=== PATIENT | male | born 1950 | race Caucasian/White ===

== ENCOUNTER 2021-10-12 11:00 | Inpatient (IN) ==
[2021-10-12] MEDS ORDERED: *HR* HYDROmorphone PF 0.5 MG/0.5 ML SYRINGE IVP PRN (11:48)
[2021-10-12] MEDS ORDERED: cefOXitin 2,000 MG in Water for inj. (sterile) 10 ML IVP ONE ×2 (12:16→13:00)
[2021-10-12] MEDS: Ringers Solution, Lactated 1,000 ML IVC SCH ×2 (12:27→18:34)
[2021-10-12] MEDS ORDERED: Ondansetron 4 MG/2 ML VIAL ONE (12:44)
[2021-10-12] MEDS ORDERED: *HR* Rocuronium Bromide 50 MG/5 ML VIAL ONE ×2 (12:44→15:48)
[2021-10-12] MEDS ORDERED: Lidocaine -MPF 2% 5 ML VIAL ONE ×2 (12:44→17:13)
[2021-10-12] MEDS ORDERED: *HR* FentaNYL (PF) 100 MCG/2 ML VIAL ONE (12:45)
[2021-10-12] MEDS ORDERED: *HR* Propofol 200 MG/20 ML VIAL IVP ONE (12:45)
[2021-10-12] MEDS ORDERED: *HR* Magnesium Sulfate 1 GM/2 ML VIAL ONE (13:00)
[2021-10-12] MEDS ORDERED: Acetaminophen IV 1,000 MG/100 ML BAG IVPB ONE (14:13)
[2021-10-12] MEDS ORDERED: *HR* HYDROMORPHONE 2 MG/ML VIAL ONE (15:50)
[2021-10-12] MEDS ORDERED: *HR* Metoprolol 5 MG/5 ML VIAL IVP PRN (18:59)
[2021-10-12] MEDS ORDERED: Ondansetron 4 MG/2 ML VIAL IVP PRN (18:59)
[2021-10-12] MEDS ORDERED: D5% in Water 1,000 ML IVC PRN (18:59)
[2021-10-12] MEDS ORDERED: *HR* Dextrose 50 % in Water (Syg) 50 ML SYRINGE IVP PRN (18:59)
[2021-10-12] MEDS ORDERED: Dextrose Gel 15 GM/37.5 ML TUBE PO PRN ×2 (18:59)
[2021-10-12] MEDS: 0.9 % Sodium Chloride 1,000 ML IVC SCH (20:07)
[2021-10-12] MEDS: Acetaminophen IV 1,000 MG/100 ML BAG IVPB SCH (20:08)
[2021-10-12] MEDS: Insulin LISPRO 300 UNITS/3 ML VIAL SUBQ SCH (21:34)
[2021-10-13] MEDS: Acetaminophen IV 1,000 MG/100 ML BAG IVPB SCH ×4 (00:15→20:32)
[2021-10-13] MEDS: Insulin LISPRO 300 UNITS/3 ML VIAL SUBQ SCH ×4 (00:17→17:20)
[2021-10-13] MEDS: MetroNIDAZOLE 500 MG/100 ML 500 MG/100 ML BAG IVPB SCH ×3 (02:01→20:59)
[2021-10-13] MEDS: 0.9 % Sodium Chloride 1,000 ML IVC SCH ×2 (05:33→08:00)
[2021-10-13 05:47] LABS: Basophils % 0.1 %; Hematocrit 36.7 % (37.5-50.1); Hemoglobin 12.6 g/dL (12.9-16.9); Immature Granulocytes % 0.3 % (0-4); Lymphocytes # 5.4 K/mcL (0.6-4.6); Lymphocytes % 32.5 %; Mean Corpuscular HGB Conc 34.3 g/dL (31.6-35.5); Mean Corpuscular Hemoglobin 31.2 pg (28.0-33.3); Mean Corpuscular Volume 90.8 fL (83.0-100.0); Mean Platelet Volume 8.3 fL (9.4-12.4); Monocytes # 1.1 K/mcL (0.0-1.3); Monocytes % 6.9 %; Platelet Count 258 K/mcL (140-400); Red Blood Count 4.04 M/mcL (4.19-5.50); Red Cell Distribution Width 13.4 % (11.5-14.5); Segmented Neutrophils % 60.2 %; White Blood Count 16.6 K/mcL (4.3-11.1)
[2021-10-13 06:08] LABS: BUN/Creatinine Ratio 10 (6-26); Blood Urea Nitrogen 9 mg/dL (8-23); Calcium 7.9 mg/dL (8.6-10.3); Carbon Dioxide 21 mEq/L (23-29); Chloride 108 mEq/L (98-107); Glucose 128 mg/dL (70-105); Magnesium 2.5 mg/dL (1.6-2.6); Osmolality,Calculated 290 (280-300); Phosphorous 2.8 mg/dL (2.7-4.5); Potassium 3.8 mEq/L (3.5-5.1); Sodium 140 mEq/L (136-145); eGFR For African Americans > 60 (> 60); eGFR For Non-African Americans > 60 (> 60)
[2021-10-13] MEDS: Pantoprazole 40 MG VIAL IVP SCH (07:34)
[2021-10-13] MEDS: lisinopriL 20 MG TABLET PO SCH (07:34)
[2021-10-13] MEDS ORDERED: Scopolamine Patch 1.5 MG PATCH.TD72 TD ONE (13:22)
[2021-10-13] MEDS ORDERED: Ketorolac 30 MG/ML VIAL IVP PRN (13:23)
[2021-10-13] MEDS: *HR* Heparin 5,000 UNIT/ML VIAL SQ SCH (17:55)
[2021-10-14] MEDS: Insulin LISPRO 300 UNITS/3 ML VIAL SUBQ SCH ×4 (00:23→17:14)
[2021-10-14] MEDS: Acetaminophen IV 1,000 MG/100 ML BAG IVPB SCH ×4 (00:44→20:38)
[2021-10-14 01:23] LABS: Basophils % 0.2 %; Hematocrit 35.7 % (37.5-50.1); Hemoglobin 11.9 g/dL (12.9-16.9); Immature Granulocytes % 0.4 % (0-4); Lymphocytes # 4.6 K/mcL (0.6-4.6); Lymphocytes % 31.1 %; Mean Corpuscular HGB Conc 33.3 g/dL (31.6-35.5); Mean Corpuscular Hemoglobin 30.8 pg (28.0-33.3); Mean Corpuscular Volume 92.5 fL (83.0-100.0); Mean Platelet Volume 8.4 fL (9.4-12.4); Monocytes # 1.3 K/mcL (0.0-1.3); Monocytes % 8.9 %; Neutrophils # 8.8 K/mcL (1.6-8.9); Platelet Count 257 K/mcL (140-400); Red Blood Count 3.86 M/mcL (4.19-5.50); Segmented Neutrophils % 59.4 %; White Blood Count 14.8 K/mcL (4.3-11.1)
[2021-10-14 01:41] LABS: BUN/Creatinine Ratio 16 (6-26); Blood Urea Nitrogen 14 mg/dL (8-23); Calcium 7.6 mg/dL (8.6-10.3); Carbon Dioxide 23 mEq/L (23-29); Chloride 107 mEq/L (98-107); Glucose 130 mg/dL (70-105); Magnesium 2.4 mg/dL (1.6-2.6); Osmolality,Calculated 282 (280-300); Potassium 3.5 mEq/L (3.5-5.1); Sodium 135 mEq/L (136-145); eGFR For African Americans > 60 (> 60); eGFR For Non-African Americans > 60 (> 60)
[2021-10-14] MEDS: MetroNIDAZOLE 500 MG/100 ML 500 MG/100 ML BAG IVPB SCH ×3 (03:38→21:05)
[2021-10-14] MEDS: *HR* Heparin 5,000 UNIT/ML VIAL SQ SCH ×2 (06:07→18:40)
[2021-10-14] MEDS: 0.9 % Sodium Chloride 1,000 ML IVC SCH (09:31)
[2021-10-14] MEDS: Pantoprazole 40 MG VIAL IVP SCH (09:32)
[2021-10-14] MEDS: lisinopriL 20 MG TABLET PO SCH (09:32)
[2021-10-14] MEDS: Ibuprofen 800 MG TABLET PO SCH ×3 (13:34→15:38)
[2021-10-14] MEDS: *HR* Metformin 500 MG TABLET PO SCH (18:35)
[2021-10-15] MEDS: Acetaminophen IV 1,000 MG/100 ML BAG IVPB SCH ×4 (01:56→19:55)
[2021-10-15] MEDS: Insulin LISPRO 300 UNITS/3 ML VIAL SUBQ SCH ×4 (01:57→17:48)
[2021-10-15 02:07] LABS: Basophils % 0.3 %; Hematocrit 35.7 % (37.5-50.1); Hemoglobin 11.8 g/dL (12.9-16.9); Immature Granulocytes % 0.4 % (0-4); Lymphocytes # 4.3 K/mcL (0.6-4.6); Lymphocytes % 27.6 %; Mean Corpuscular HGB Conc 33.1 g/dL (31.6-35.5); Mean Corpuscular Volume 93.7 fL (83.0-100.0); Mean Platelet Volume 8.4 fL (9.4-12.4); Monocytes # 1.1 K/mcL (0.0-1.3); Monocytes % 7.1 %; Neutrophils # 10.1 K/mcL (1.6-8.9); Platelet Count 226 K/mcL (140-400); Red Blood Count 3.81 M/mcL (4.19-5.50); Red Cell Distribution Width 13.6 % (11.5-14.5); Segmented Neutrophils % 64.6 %; White Blood Count 15.7 K/mcL (4.3-11.1)
[2021-10-15 02:08] LABS: BUN/Creatinine Ratio 20 (6-26); Blood Urea Nitrogen 15 mg/dL (8-23); Calcium 7.8 mg/dL (8.6-10.3); Carbon Dioxide 22 mEq/L (23-29); Chloride 104 mEq/L (98-107); Glucose 149 mg/dL (70-105); Magnesium 2.1 mg/dL (1.6-2.6); Osmolality,Calculated 284 (280-300); Phosphorous 1.8 mg/dL (2.7-4.5); Potassium 3.6 mEq/L (3.5-5.1); Sodium 135 mEq/L (136-145); eGFR For African Americans > 60 (> 60); eGFR For Non-African Americans > 60 (> 60)
[2021-10-15] MEDS: *HR* Heparin 5,000 UNIT/ML VIAL SQ SCH ×2 (06:21→16:53)
[2021-10-15] MEDS: MetroNIDAZOLE 500 MG/100 ML 500 MG/100 ML BAG IVPB SCH ×4 (06:22→21:00)
[2021-10-15] MEDS: *HR* HYDROcodone/Acet 5/325 mg TABLET PO PRN ×3 (07:34→16:52)
[2021-10-15] MEDS: Ibuprofen 800 MG TABLET PO SCH ×3 (07:35→16:52)
[2021-10-15] MEDS: Pantoprazole 40 MG VIAL IVP SCH (07:35)
[2021-10-15] MEDS: *HR* Metformin 500 MG TABLET PO SCH ×2 (07:35→16:53)
[2021-10-15] MEDS: Ipratropium/Albuterol Neb 3 ML IH ONE ×2 (08:34→10:57)
[2021-10-15] MEDS: Metoclopramide 20 MG in 0.9 % Sodium Chloride 50 ML IVPB SCH ×2 (11:11→16:54)
[2021-10-15] MEDS ORDERED: 0.9 % Sodium Chloride 500 ML ONE (11:29)
[2021-10-16] MEDS: Insulin LISPRO 300 UNITS/3 ML VIAL SUBQ SCH ×4 (00:14→17:49)
[2021-10-16] MEDS: Ibuprofen 800 MG TABLET PO SCH ×3 (00:15→15:13)
[2021-10-16] MEDS: Acetaminophen IV 1,000 MG/100 ML BAG IVPB SCH ×2 (00:16→06:13)
[2021-10-16] MEDS: Metoclopramide 20 MG in 0.9 % Sodium Chloride 50 ML IVPB SCH (03:02)
[2021-10-16] MEDS: MetroNIDAZOLE 500 MG/100 ML 500 MG/100 ML BAG IVPB SCH ×2 (04:03→12:24)
[2021-10-16 05:17] LABS: Basophils # 0.1 K/mcL (0.0-0.2); Basophils % 0.4 %; Eosinophils % 0.3 %; Hematocrit 31.9 % (37.5-50.1); Hemoglobin 10.5 g/dL (12.9-16.9); Immature Granulocytes % 0.3 % (0-4); Lymphocytes # 4.1 K/mcL (0.6-4.6); Lymphocytes % 34.7 %; Mean Corpuscular HGB Conc 32.9 g/dL (31.6-35.5); Mean Corpuscular Hemoglobin 30.3 pg (28.0-33.3); Mean Corpuscular Volume 92.2 fL (83.0-100.0); Mean Platelet Volume 8.4 fL (9.4-12.4); Monocytes % 8.8 %; Neutrophils # 6.6 K/mcL (1.6-8.9); Platelet Count 228 K/mcL (140-400); Red Blood Count 3.46 M/mcL (4.19-5.50); Red Cell Distribution Width 13.4 % (11.5-14.5); Segmented Neutrophils % 55.5 %; White Blood Count 11.9 K/mcL (4.3-11.1)
[2021-10-16 05:34] LABS: BUN/Creatinine Ratio 18 (6-26); Blood Urea Nitrogen 16 mg/dL (8-23); Calcium 8.1 mg/dL (8.6-10.3); Carbon Dioxide 24 mEq/L (23-29); Chloride 102 mEq/L (98-107); Glucose 132 mg/dL (70-105); Magnesium 1.9 mg/dL (1.6-2.6); Osmolality,Calculated 281 (280-300); Phosphorous 3.3 mg/dL (2.7-4.5); Potassium 3.3 mEq/L (3.5-5.1); Sodium 134 mEq/L (136-145); eGFR For African Americans > 60 (> 60); eGFR For Non-African Americans > 60 (> 60)
[2021-10-16] MEDS: *HR* Heparin 5,000 UNIT/ML VIAL SQ SCH ×2 (06:09→17:22)
[2021-10-16] MEDS ORDERED: Potassium Chloride Elixir 20 MEQ/15 ML UDC PO ONE (07:02)
[2021-10-16] MEDS: *HR* Metformin 500 MG TABLET PO SCH ×2 (08:57→17:23)
[2021-10-16] MEDS: Pantoprazole 40 MG VIAL IVP SCH (08:57)
[2021-10-16 11:51] VITALS: O2SAT 94
[2021-10-16 15:06] VITALS: BP 157/85; PULSE 92; TEMP 98.3
[2021-10-16] MEDS ORDERED: Acetaminophen IV 1,000 MG/100 ML BAG IVPB SCH (17:00)
[2021-10-16] MEDS ORDERED: D5% in Water 1,000 ML IVC PRN (17:46)
[2021-10-16] MEDS ORDERED: Dextrose Gel 15 GM/37.5 ML TUBE PO PRN ×2 (17:46)
[2021-10-16] MEDS ORDERED: *HR* Dextrose 50 % in Water (Syg) 50 ML SYRINGE IVP PRN (17:46)
== END 2021-10-16 20:00 | disposition home or self-care (01) | DRG 330 ==
LOC: SAMDAY 11:00 → 3ANU 18:48
PROVIDERS: ADMIT Surgery; ATTEND Surgery